=== PATIENT | male | born 1935 | race Caucasian/White ===

== ENCOUNTER 2020-04-15 04:56 | Inpatient (IN) | payer MEDICARE ==
[~2020-04-15] VITALS: Ht 175.3 cm; Wt 72.6 kg
[2020-04-15 05:12] VITALS: BP 140/70
[2020-04-15] MEDS ORDERED: TOPROL XL50 MG PO (05:37)
[2020-04-15] MEDS ORDERED: AUGMENTIN 500-1 EACH PO (05:38)
[2020-04-15 05:49] LABS: ABSOLUTE NEUTROPHILS 15.7 thou/uL (1.4-8.2); BASOPHILS 0.6 % (0.0-2.0); EOSINOPHILS 0.2 % (0.0-3.0); HEMATOCRIT 36.9 % (42.0-52.0); HEMOGLOBIN 12.5 gm/dL (14.0-18.0); LYMPHOCYTES 6.8 % (24.0-44.0); MCH 31.1 pg (26.0-34.0); MCHC 33.9 g/dL (28.0-37.0); MCV 91.9 fL (80.0-100.0); MONOCYTES 6.5 % (1.0-8.0); PLATELET COUNT 294 thou/uL (150-400); POLYS 85.9 % (36.0-66.0); RBC 4.02 mil/uL (4.50-6.00); RDW 12.8 % (10.5-14.5); WBC 18.3 thou/uL (4.0-11.0)
[2020-04-15 05:54] LABS: CREATININE 1.4 mg/dL (0.7-1.3); POTASSIUM 3.9 mmol/L (3.5-5.1)
[2020-04-15 06:44] LABS: URINE BILIRUBIN NEGATIVE (Negative); URINE BLOOD 3+ (Negative); URINE COLOR YELLOW; URINE GLUCOSE-RANDOM* NEGATIVE (Negative); URINE KETONES 1+ (Negative); URINE LEUKOCYTES-REFLEX NEGATIVE (Negative); URINE NITRITE-REFLEX NEGATIVE (Negative); URINE PROTEIN (DIPSTICK) NEGATIVE (Negative)
[2020-04-15 06:47] LABS: URINE CLARITY SL HAZY
[2020-04-15 07:07] LABS: CASTS None Seen /LPF (None Seen); MUCUS 0-3 Light strn/LPF (None Seen); SQUAMOUS 0-3 Few /LPF (0-3)
[2020-04-15 07:08] LABS: BACTERIA-REFLEX None Seen /HPF (None Seen); CRYSTALS None Seen /LPF (None Seen); URINE RBC >20 Many /HPF (0-2); URINE WBC-REFLEX 0-5 Rare /HPF (0-5)
[2020-04-15 07:23] LABS: CALCIUM 9.3 mg/dL (8.5-10.1)
[2020-04-15 13:57] VITALS: BP 133/50
[2020-04-15 16:22] LABS: ALBUMIN 3.5 g/dL (3.4-5.0); DIRECT BILIRUBIN 0.2 mg/dL (<0.1-0.2); TOTAL BILIRUBIN 0.7 mg/dL (0.2-1.0); TOTAL PROTEIN 7.3 g/dL (6.4-8.2)
--- NOTE | 2020-04-15 20:39 | NUR ---
PT WAS ASSIGNED A RM ON 3W. DAUGHTER REFUSED THIS STATING CONCERN OF PUTTING PT ON COVID WING IF PT DOES NOT HAVE COVID. DTR AWARE THAT PT WILL STAY BOARDED IN THE ER UNTIL ANOTHER RM CAN BE REASSIGNED.
[2020-04-15 21:32] VITALS: BP 128/57
[2020-04-16 06:03] LABS: ABSOLUTE NEUTROPHILS 12.8 thou/uL (1.4-8.2); BASOPHILS 0.4 % (0.0-2.0); EOSINOPHILS 0.6 % (0.0-3.0); HEMATOCRIT 31.2 % (42.0-52.0); HEMOGLOBIN 10.6 gm/dL (14.0-18.0); LYMPHOCYTES 11.5 % (24.0-44.0); MCH 31.3 pg (26.0-34.0); MCHC 33.8 g/dL (28.0-37.0); MCV 92.6 fL (80.0-100.0); MONOCYTES 6.5 % (1.0-8.0); PLATELET COUNT 224 thou/uL (150-400); RBC 3.37 mil/uL (4.50-6.00); RDW 12.8 % (10.5-14.5); WBC 15.8 thou/uL (4.0-11.0)
[2020-04-16 06:28] LABS: ALBUMIN 2.4 g/dL (3.4-5.0); CALCIUM 8.2 mg/dL (8.5-10.1); CREATININE 1.2 mg/dL (0.7-1.3); MAGNESIUM 1.9 mg/dL (1.8-2.4); POTASSIUM 3.6 mmol/L (3.5-5.1); TOTAL BILIRUBIN 0.6 mg/dL (0.2-1.0); TOTAL PROTEIN 5.6 g/dL (6.4-8.2)
--- NOTE | 2020-04-16 06:39 | NUR ---
Pt's DPOA Daughter, Patito, called for update and wonder if she would be able to take her dad home soon and take care of him there. Explained to daughter her message would be forwarded to AM RN to ask
[2020-04-16 08:23] VITALS: BP 144/65
--- NOTE | 2020-04-16 10:52 | HC ---
[facility] [place] [address] CONSULTATION Name: LITTLE CARDOZA Room #: 170-1 ADM IN M.R.#: [id number] Admission: 04/15/20 Attend Phys: Anand Murphy MD Discharge: Date of : 33 Report #: [id number] THIS REPORT FOR: cc: [facility] - Clinic physician unknown [facility] - Clinic physician unknown Jet Jensen MD ~ DATE OF SERVICE: 04/15/2020 INFECTIOUS DISEASE CONSULTATION ATTENDING PHYSICIAN: Dr. Murphy. REASON FOR EVALUATION: Febrile illness, recent dental procedure. HISTORY OF PRESENT ILLNES: Chart reviewed, patient examined. This is an 84-year-old with history of SVT. Otherwise, fairly unremarkable history, who was living at home, had developed fevers. Daughter insisted he come in. He actually has some memory deficits. He was unable to give any details. He notes he had recent dental work, specifically his mandible and was placed on Augmentin, feeling there is a likely infectious component. On questioning, he denies any mouth pain. He actually was unaware of fevers, although on admission, temperature was up to 104. He really denies any head and neck signs or symptoms. No pulmonary or GI related complaints, although did admit to be being with somewhat diminished appetite. Denies any weight loss. No rashes. No generalized myalgias, arthralgias. He is quite active typically. He states he mows up to 10 acres. He has not had any contact with any animals that he is aware of. No recent travel. No dietary indiscretions. Blood cultures were collected, empirically started on Unasyn. Otherwise, evaluation was somewhat unrevealing. Chest x-ray showed no acute process. Urinalysis was otherwise unremarkable. He is not overtly toxic. ALLERGIES: None known. CURRENT MEDICATIONS: Include famotidine, enoxaparin, Unasyn, acetaminophen, ondansetron as needed. PAST MEDICAL HISTORY: History of supraventricular tachycardia and a pacemaker. SOCIAL HISTORY: Nonsmoker, no ethanol, no illicit drug use. FAMILY HISTORY: Noncontributory. REVIEW OF SYSTEMS: Otherwise, unremarkable 10-point review of systems. [facility] [address] [place] [address] CONSULTATION Name: LITTLE CARDOZA Room #: 170-1 ADM IN M.R.#: [id number] Admission: 04/15/20 Attend Phys: Anand Murphy MD Discharge: Date of : 33 Report #: [id number] PHYSICAL EXAMINATION: GENERAL: He is alert, cooperative, appropriate. He does have some memory deficits, appears somewhat undernourished. He is not overtly toxic. He is mildly distressed. VITAL SIGNS: Temperature 100.9, T-max earlier 104.1, pulse 96, respirations 15, blood pressure 132/61, saturation 98% on room air. SKIN: Warm, dry, no rashes. He has got a few areas of abrasion and contusions on the upper extremities. HEENT: Normocephalic. Extraocular muscles intact. Oropharynx is fairly benign appearing. No evident inflammation. There is no pharyngitis. No lesions are apparent. NECK: Supple. LUNGS: Generally clear breath sounds. HEART: Borderline tachycardic. May have soft systolic murmur. ABDOMEN: Mildly firm. There are no overt peritoneal signs. GENITOURINARY AND RECTAL: Deferred. LABORATORY DATA AND IMAGING: CT of the head, was otherwise unremarkable. Electrolytes: Sodium 136, potassium 3.9, chloride 98, bicarbonate is 24, anion gap of 14, BUN and creatinine 21 and 1.4, glucose of 119. Estimated GFR of 48. Urinalysis; 0-5 white cells, no bacteria. Lactic acid 1.3. Chest x-ray: Cardiomegaly without acute process. CBC: White count elevated at 18.3, H and H 12.5 and 36.9, platelets of 294. ASSESSMENT AND PLAN: Febrile illness of unclear etiology. The patient did have recent dental procedure. The primary dental infections would be concerned about something like endocarditis. We will check echo images, CT abdomen and pelvis to exclude an occult process. Check liver function tests. We will await blood culture results that may certainly clue us in, check pneumococcal antigen, maybe he has an early pneumonitis which the x-ray has not developed, clear infiltrates. See how he does clinically. Other concern would be a drug fever perhaps given the apparent lack of appreciation of the symptoms of fever. We would consider noninfectious causes too given the high degree. I think it is reasonable to continue the Unasyn that gives us reasonable coverage for mouth as well as alimentary tract and to the skin and soft tissue to a certain extent. We will check influenza antigen testing as well, although he lacks respiratory tract signs and symptoms. We will monitor expectantly. <ELECTRONICALLY SIGNED> By: Jet Jensen MD 04/16/20 1052 1558 28 Jet Jensen MD /nt
--- NOTE | 2020-04-16 12:17 | 2DMMODE ---
[facility] [place] [address] 2 D/M-MODE ECHOCARDIOGRAM Name: LITTLE CARDOZA Room #: 170-1 ADM IN M.R.#: [id number] Admission: 04/15/20 Attend Phys: Anand Murphy MD Discharge: Date of : 34 Report #: [id number] THIS REPORT FOR: cc: [facility] - Clinic physician unknown [facility] - Clinic physician unknown Scottie Guerrier MD [facility] ~ APPROVED REPORT Study performed: 04/16/2020 10:44:20 EXAM: Comprehensive 2D, Doppler, and color-flow Echocardiogram Patient Location: ER Room #: 1 Status: routine BSA: 1.88 HR: 82 bpm BP: 144/65 mmHg Rhythm: NSR Other Information Study Quality: Good Indications Sepsis 2D Dimensions RVDd: 34.30 mm IVSd: 9.23 (7-11mm) LVOT Diam: 21.59 (18-24mm) LVDd: 44.66 mm PWd: 9.23 (7-11mm) Ascending Ao: 33.37 (22-36mm) LVDs: 28.40 (25-40mm) Aortic Root: 35.66 mm IVC: 24.00 mm Volumes Left Atrial Volume (Systole) Single Plane 4CH: 40.29 mL Single Plane 2CH: 42.63 mL LA ESV Index: 24.00 mL/m2 Aortic Valve AoV Peak Pilo.: 1.50 m/s AO Peak Gr.: 8.95 mmHg LVOT Max P.95 mmHg LVOT Max V: 0.99 m/s YARITZA Vmax: 2.43 cm2 [facility] [address] [address] 2 D/M-MODE ECHOCARDIOGRAM Name: LITTLE CARDOZA Room #: 170-1 ADM IN M.R.#: [id number] Admission: 04/15/20 Attend Phys: Anand Murphy MD Discharge: Date of : 34 Report #: [id number] Mitral Valve E/A Ratio: 1.4 MV Decel. Time: 153.67 ms MV E Max Pilo.: 1.17 m/s MV A Pilo.: 0.82 m/s MV PHT: 44.56 ms IVRT: 69.20 ms Pulmonary Valve PV Peak Pilo.: 1.16 m/s PV Peak Gr.: 5.42 mmHg Pulmonary Vein P Vein S: 0.71 m/s P Vein A: 0.29 m/s P Vein D: 0.48 m/s P Vein A Dur.: 110.7 msec P Vein S/D Ratio: 1.48 Tricuspid Valve TR Peak Pilo.: 2.50 m/s TR Peak Gr.: 25.02 mmHg PA Pressure: 35.00 mmHg Left Ventricle The left ventricle is normal size. There is normal LV segmental wall motion. There is normal left ventricular wall thickness. The left ventricular systolic function is normal. The left ventricular ejection fraction is within the normal range. LVEF is 55-60%. The left ventricular diastolic function is normal. Right Ventricle The right ventricle is normal size. The right ventricular systolic function is normal. Atria The left atrium size is normal. The right atrium size is normal. Aortic Valve The aortic valve is normal in structure. No aortic regurgitation is present. There is no aortic valvular stenosis. Mitral Valve The mitral valve is normal in structure. Trace mitral regurgitation. No evidence of mitral valve stenosis. Tricuspid Valve The tricuspid valve is normal in structure. There is trace tricuspid [facility] [place] [address] 2 D/M-MODE ECHOCARDIOGRAM Name: LITTLE CARDOZA Room #: 170-1 ADM IN M.R.#: [id number] Admission: 04/15/20 Attend Phys: Anand Murphy MD Discharge: Date of : 33 Report #: [id number] regurgitation.Estimated PAP 35 mmHg. There is mild pulmonary hypertension. Pulmonic Valve The pulmonary valve is normal in structure. There is no pulmonic valvular regurgitation. Great Vessels The aortic root is normal in size. IVC is dilated and collapses >50% with inspiration. Pericardium There is no pericardial effusion. <Conclusion> Normal left ventricle size and wall thickness EF 60-65%, no segmental wall motion abnormality Normal right heart size Normal atrial size Normal aortic/mitral valve structure/function Trace tricuspid valve insufficiency Pulmonary artery systolic pressure estimated at 35 mmHg No pericardial effusion <ELECTRONICALLY SIGNED> By: Scottie Guerrier MD, FACC 04/16/201216 16 16 Scottie Guerrier MD, FACC /INF
[2020-04-16 15:54] VITALS: BP 166/78
--- NOTE | 2020-04-16 15:57 | NUR ---
PT NOTED TO TAKE IV OUT AND STRIP CLOTHES OFF. PT APPEARED ANXIOUS AND SLIGHTLY AGITATED. PT IS EASILY REDIRECTABLE. PT REDIRECTED BACK TO BED AND CALL PLACED TO DR MARTINEZ FOR ANXIETY MEDICATION.
--- NOTE | 2020-04-16 18:51 | NUR ---
DAUGHTER BROUGHT SOUP FOR PT, PT GIVEN CHICKEN NOODLE AT THIS TIME, THE REST WERE PUT IN THE PT REFIG
[2020-04-17 00:30] VITALS: BP 161/82
[2020-04-17 05:00] VITALS: BP 168/78
--- NOTE | 2020-04-17 10:00 | NUR ---
DAUGHTER LOUISE ESPOSITO ([phone]) CALLED REQUESTING FOR PT NOT TO BE TRANSFERRED OUT OF THE ER UNTIL SHE MUST HAVE SPOKEN TO ATTENDING AND RECENT LABS OBTAINED. UPDATE ON POC AND COVID TEST RESULT DISCUSSED. SHE VU BUT STILL INSISTED SAYING "I DO NOT WANT HIM TRANSFERRED OUT OF THAT ROOM IN THE ER". DR MARTINEZ NOTIFIED OF PHONE CONVERSATION, SAYS HE WILL GIVE DAUGHTER A CALL.
[2020-04-17 10:45] LABS: ABSOLUTE NEUTROPHILS 10.9 thou/uL (1.4-8.2); BASOPHILS 0.4 % (0.0-2.0); EOSINOPHILS 2.2 % (0.0-3.0); HEMATOCRIT 27.5 % (42.0-52.0); HEMOGLOBIN 9.5 gm/dL (14.0-18.0); LYMPHOCYTES 9.9 % (24.0-44.0); MCH 31.5 pg (26.0-34.0); MCHC 34.4 g/dL (28.0-37.0); MCV 91.6 fL (80.0-100.0); MONOCYTES 6.9 % (1.0-8.0); PLATELET COUNT 242 thou/uL (150-400); POLYS 80.6 % (36.0-66.0); RDW 12.9 % (10.5-14.5); WBC 13.5 thou/uL (4.0-11.0)
[2020-04-17 12:17] LABS: CALCIUM 8.3 mg/dL (8.5-10.1); POTASSIUM 3.2 mmol/L (3.5-5.1)
[2020-04-17 12:22] LABS: ALBUMIN 2.4 g/dL (3.4-5.0); TOTAL BILIRUBIN 0.5 mg/dL (0.2-1.0); TOTAL PROTEIN 5.5 g/dL (6.4-8.2)
[2020-04-17] MEDS ORDERED: ACETAMINOPHEN325 M1 PO (13:46)
[2020-04-17] MEDS ORDERED: AMOX TR-K CLV1 EAC4 PO (13:46)
[2020-04-17 14:24] VITALS: BP 152/59
--- NOTE | 2020-04-17 16:00 | NUR ---
rn joaquim spoke with er nurse, asking to verify who pt pcp is. reported from pt daughter is " dr ana dixon # [phone]"/daughter. referral xena herrera.
--- NOTE | 2020-04-17 16:19 | NUR ---
FAXED REFERRAL TO [facility] SPOKE WITH EMIGDIO IN INTAKE THEY CAN ACCEPT. PT TO DC TODAY.
--- NOTE | 2020-04-18 10:57 | NUR ---
THIS RN NOTIFIED VERO MCDERMOTT, OF THE PT'S POSITIVE COVID RESULTS AND THE NEED FOR THE PT TO BE ISOLATED FROM OTHER MEMEBERS OF THE HOUSEHOLD. SHE STATED "I WILL NOT ISOLATE HIM FROM HIS , IT WOULD DO MORE HARM THAN GOOD. I ALSO HAVE RECENTLY HAD IT, SO I CAN'T GET IT." THIS RN THEN INFORMED LOUISE THAT EVEN THOUGH SHE MAY HAVE ANTIBODIES THAT CAN PREVENT HER FROM SIL THE VIRUS, SHE MAY CARRY THE VIRUS ON HER CLOTHING WHICH CAN POSSIBLY TRANSFER TO OTHERS OUTSIDE OF HER HOUSEHOLD. WHILE INFORMING LOUISE THAT SHE IS ALSO WELCOME TO CALL OR BRING THEM IN TO THE ER IF EITHER OF THEM DEVELOP SYMPTOMS, SHE STATED "WELL THE NURSE THAT WAS JUST HERE SAID THEY DON'T HAVE ANY SYMPTOMS." THIS RN INSTRUCTED JULIANALTON THE VERO TO IMMEDIATELY NOTIFY THE COMPANY CARING FOR HER FATHER THAT HE IS COVID +.
--- NOTE | 2020-04-23 11:22 | EKG ---
[facility] [place] [address] ELECTROCARDIOGRAM REPORT Name: LITTLE CARDOZA Room #: [facility]- DIS IN M.R.#: [id number] Admission: 04/15/20 Attend Phys: Anand Murphy MD Discharge: 04/17/20 Date of : 34 Report #: [id number] THIS REPORT FOR: cc: [facility] - Clinic physician unknown [facility] - Clinic physician unknown Scottie Guerrier MD [facility] ~ THIS REPORT FOR: //name// [facility] ED Test Date: 2020-04-15 Test Time: 05:29:22 Pat Name: LITTLE CARDOZA Department: Room: [facility] Gender: M Transportation Engineer: : 1935 Requested By: Chaitanya Cohen Order Number: [id number] MD: Scottie Guerrier Measurements Intervals [place] Rate: 103 P: 251 OK: 219 QRS: 36 QRSD: 131 T: -12 QT: 365 QTc: 478 Interpretive Statements Sinus or ectopic atrial tachycardia Prolonged OK interval Right bundle branch block No previous ECG available for comparison Electronically Signed On 04-16-2020 7:24:09 FIELD PROFESSIONAL by Scottie Guerrier [email or web address] <ELECTRONICALLY SIGNED> By: Scottie Guerrier MD, FACC 04/16/20 0724 0529 0529 Scottie Guerrier MD, [facility] /EPI
== END 2020-04-17 13:38 | disposition home health service (06) | DRG 871 ==
LOC: EDBD 04:56 → ER 04:56 → EROBS 07:56 → ER 07:56 → EROBS 13:59 → ER 04-17 17:44
PROVIDERS: Emergency Medicine; Specialist; ADMIT Internal Medicine; ATTEND Internal Medicine
DX: A41.9 Sepsis, unspecified organism (principal); U07.1 COVID-19; E43 Unspecified severe protein-calorie malnutrition; N17.9 Acute kidney failure, unspecified; F03.91 Unspecified dementia, unspecified severity, with behavioral disturbance; K04.7 Periapical abscess without sinus; I10 Essential (primary) hypertension; K52.9 Noninfective gastroenteritis and colitis, unspecified; Z95.0 Presence of cardiac pacemaker; Z79.899 Other long term (current) drug therapy; Z68.23 Body mass index [BMI] 23.0-23.9, adult